=== PATIENT | female | born 1985 | race African-American/Black ===

== ENCOUNTER 2017-09-07 16:26 | Inpatient (IN) | payer OTHER ==
[~2017-09-07] VITALS: Ht 157.5 cm; Wt 55.0 kg
[2017-09-07] MEDS ORDERED: ADV250INH INH (16:54)
[2017-09-07] MEDS ORDERED: ALBU1.25 INH (16:54)
[2017-09-07] MEDS ORDERED: TRAZ50TA11 PO (16:54)
[2017-09-07] MEDS ORDERED: SING10TA32 PO (16:54)
[2017-09-07 17:46] LABS: MEAN CORPUSCULAR HEMOGLOBIN 29.1 pg (27.0-33.0); MEAN CORPUSCULAR HGB CONC 33.7 g/dl (32.0-36.5); MEAN CORPUSCULAR VOLUME 86.2 fl (80.0-96.0); PLATELET COUNT, AUTOMATED 381 10^3/uL (150-450); RED CELL DISTRIBUTION WIDTH 11.3 % (11.5-14.5); WHITE BLOOD COUNT 6.1 10^3/uL (4.0-10.0)
[2017-09-07 18:03] LABS: CONTROL LINE HCG INT CTR LINE PRESENT
[2017-09-07 18:08] LABS: METHADONE URINE NEGATIVE (NEGATIVE)
[2017-09-07 18:17] LABS: ALBUMIN 4.2 GM/DL (3.2-5.2); ALKALINE PHOSPHATASE 67 U/L (45-117); ALT/SGPT 14 U/L (12-78); ANION GAP 7 MEQ/L (8-16); AST/SGOT 9 U/L (7-37); BILIRUBIN,DIRECT < 0.1 MG/DL (0.0-0.2); BILIRUBIN,TOTAL 0.3 MG/DL (0.2-1.0); BLOOD UREA NITROGEN 12 MG/DL (7-18); CALCIUM LEVEL 8.7 MG/DL (8.5-10.1); CARBON DIOXIDE LEVEL 27 MEQ/L (21-32); CHLORIDE LEVEL 107 MEQ/L (98-107); CREATININE FOR GFR 0.83 MG/DL (0.55-1.02); GLOMERULAR FILTRATION RATE > 60.0 (>60); GLUCOSE, FASTING 74 MG/DL (70-105); POTASSIUM SERUM 3.9 MEQ/L (3.5-5.1); SODIUM LEVEL 141 MEQ/L (136-145); TOTAL PROTEIN 7.7 GM/DL (6.4-8.2)
[2017-09-07] MEDS ORDERED: ALBU83IN INH (21:15)
[2017-09-07] MEDS ORDERED: traZODone 50 MG TAB PO PRN (23:30)
[2017-09-07] MEDS ORDERED: MAALOX 30 ML SUSP *UDC PO PRN (23:30)
[2017-09-07] MEDS ORDERED: ALBUTEROL SULFATE 2.5 MG/0.5 ML INH NEB SOLN INH PRN (23:45)
[2017-09-08 07:00] VITALS: BP 103/59
[2017-09-08] MEDS: MONTELUKAST 10 MG TAB PO SCH (10:00)
[2017-09-08] MEDS: ADVAIR HFA 115/21MCG INHALER INH SCH ×2 (10:00→20:35)
[2017-09-08 18:00] VITALS: BP 107/69
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
[2017-09-09 06:43] VITALS: BP 114/60
[2017-09-09] MEDS: MONTELUKAST 10 MG TAB PO SCH (08:53)
[2017-09-09] MEDS: ADVAIR HFA 115/21MCG INHALER INH SCH ×2 (08:53→21:44)
[2017-09-09] MEDS: FLUoxetine 10 MG CAP PO SCH (08:54)
[2017-09-09] MEDS ORDERED: INFLUENZA QUADRIVALENT PF VACCINE 0.5ML SYRINGE (90686) IM ONE (09:00)
[2017-09-09 12:21] VITALS: BP 120/69
--- NOTE | 2017-09-09 17:08 | MHIPN ---
DATE: 09/09/2017 CHIEF COMPLAINT: Feels anxious. SUBJECTIVE: Seen for followup, in the presence of staff. Says continues feeling anxious in essence, and depressed. Says did not get any sleep last night, has a new roommate, who is quite agitated. The patient has been eating, says also has spoken with her mother, and informed her that she was here. Says her mother asked her to pray. MENTAL STATUS EXAMINATION: Neat, cooperative, though a bit guarded. She is coherent. No agitation at present. Affect restricted but reactive. Vague on suicidal thoughts, no firm plans. No homicidal ideas or intents. No evidence of any psychosis. Cognition grossly intact. Judgment and insight are fair, questionable overall. ASSESSMENT: 1. Posttraumatic stress disorder. 2. Major depressive disorder. PLAN: She has been started on Prozac, at 10 mg daily, and this will be titrated upwards, within the next couple of days. Meanwhile, she is encouraged to participate in activities in the unit. I would also suggest obtaining collateral information to help clarify her situation further. She will be seeing the assigned treatment team tomorrow, including the psychiatrist.
[2017-09-09 18:00] VITALS: BP 118/70
[2017-09-10 07:00] VITALS: BP 109/55
--- NOTE | 2017-09-10 08:40 | HPE ---
DATE OF ADMISSION: 09/07/2017 HISTORY OF THE PRESENT ILLNESS: Please refer to psychiatric history and evaluation for further details on this admission. This examination and history is intended for medical issues history, which may need treatment, follow-up or consult on this 32-year-old female. ALLERGIES: No known allergies. PRIMARY CARE PROVIDER: [facility]. SOCIAL HISTORY: She is , but is and getting . ETOH rarely. Smokes none. Recreational drug use none. PAST MEDICAL HISTORY: Asthma. Physical therapy for degenerative disc disease. PAST SURGICAL HISTORY: [place] teeth extraction. LABORATORY STUDIES: WBC 6.1, hematocrit 14.1, hemoglobin 41.8, platelets 381. Electrolytes normal. BUN 12, creatinine 0.83. Toxicology screen is negative. FAMILY HISTORY: Noncontributory. HOME MEDICATIONS: - trazodone 50 mg by mouth at bedtime - albuterol one vial via nebulizer every 4 hours as needed for shortness of breath - Singulair 10 mg by mouth daily - Advair 50/250 one inhalation twice a day REVIEW OF SYSTEMS: 10-systems review was done and was unremarkable. Patient had no complaints. PHYSICAL EXAMINATION: Patient is alert and oriented times three. Height 62 inches, weight 55 kg, BMI 27.2, blood pressure 107/70, pulse 80, respirations 16, temperature 98. HEENT: Pupils equal and react to light. EOM's are intact. Cornea and sclerae are clear. Conjunctivae are normal. No facial asymmetry. Carotids 2+ without bruits. CHEST: Clear to auscultation without wheeze or retraction. HEART: Regular. ABDOMEN: Benign. Bowel sounds are positive. /RECTAL: Not done. EXTREMITIES: Show arthritic changes. No cyanosis, clubbing or edema. Peripheral pulses are equal and palpable bilaterally. SKIN: Warm and dry. IMPRESSION/PLAN: 1. Psychiatric plan per psychiatry. 2. History of asthma. Continue Singulair and Advair, albuterol is available as needed.
[2017-09-10] MEDS: MONTELUKAST 10 MG TAB PO SCH (08:48)
[2017-09-10] MEDS: FLUoxetine 10 MG CAP PO SCH (08:48)
[2017-09-10] MEDS: ADVAIR HFA 115/21MCG INHALER INH SCH ×2 (08:49→21:12)
[2017-09-10 18:00] VITALS: BP 101/55
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
[2017-09-10] MEDS: QUEtiapine FUMARATE 100 MG TAB PO SCH (21:11)
[2017-09-11 07:00] VITALS: BP 109/60
[2017-09-11] MEDS: MONTELUKAST 10 MG TAB PO SCH (08:28)
[2017-09-11] MEDS: SERTRALINE HCL 25 MG TABLET PO SCH (08:28)
[2017-09-11] MEDS: ADVAIR HFA 115/21MCG INHALER INH SCH ×2 (08:28→21:02)
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
[2017-09-11 18:00] VITALS: BP 114/78
[2017-09-11] MEDS: QUEtiapine FUMARATE 100 MG TAB PO SCH (21:03)
[2017-09-12 06:38] VITALS: BP 135/57
[2017-09-12] MEDS: MONTELUKAST 10 MG TAB PO SCH (08:24)
[2017-09-12] MEDS: SERTRALINE HCL 25 MG TABLET PO SCH (08:24)
[2017-09-12] MEDS: ADVAIR HFA 115/21MCG INHALER INH SCH ×2 (08:24→20:54)
[2017-09-12] MEDS: LORazepam 1 MG TAB PO PRN ×2 (11:19→20:54)
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
[2017-09-12 18:00] VITALS: BP 122/70
[2017-09-12] MEDS: QUEtiapine FUMARATE 50 MG TAB PO SCH (20:54)
[2017-09-13 07:29] VITALS: BP 100/56
[2017-09-13] MEDS: ADVAIR HFA 115/21MCG INHALER INH SCH ×2 (08:28→20:32)
[2017-09-13] MEDS: MONTELUKAST 10 MG TAB PO SCH (08:28)
[2017-09-13] MEDS: SERTRALINE HCL 50 MG TAB PO SCH (08:28)
[2017-09-13] MEDS: LORazepam 1 MG TAB PO PRN (09:39)
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
[2017-09-13 18:00] VITALS: BP 113/76
[2017-09-13] MEDS: QUEtiapine FUMARATE 50 MG TAB PO SCH (21:28)
[2017-09-14 06:36] VITALS: BP 118/58
[2017-09-14] MEDS: SERTRALINE HCL 50 MG TAB PO SCH (09:18)
[2017-09-14] MEDS: ADVAIR HFA 115/21MCG INHALER INH SCH ×2 (09:18→20:56)
[2017-09-14] MEDS: MONTELUKAST 10 MG TAB PO SCH (09:18)
[2017-09-14 09:29] VITALS: BP 118/58
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
[2017-09-14 18:00] VITALS: BP 112/56
[2017-09-15] MEDS: QUEtiapine FUMARATE 50 MG TAB PO SCH ×2 (00:04→22:30)
[2017-09-15 06:37] VITALS: BP 103/60
[2017-09-15] MEDS: SERTRALINE HCL 50 MG TAB PO SCH (08:53)
[2017-09-15] MEDS: MONTELUKAST 10 MG TAB PO SCH (08:53)
[2017-09-15] MEDS: ADVAIR HFA 115/21MCG INHALER INH SCH ×2 (08:53→21:47)
[2017-09-15] MEDS: ACETAMINOPHEN TAB 650MG DOSE (2X325MG) PO PRN (10:11)
[2017-09-15 18:00] VITALS: BP 124/69
[2017-09-16 06:46] VITALS: BP 109/74
[2017-09-16] MEDS: SERTRALINE HCL 50 MG TAB PO SCH (08:21)
[2017-09-16] MEDS: ADVAIR HFA 115/21MCG INHALER INH SCH ×2 (08:21→21:24)
[2017-09-16] MEDS: MONTELUKAST 10 MG TAB PO SCH (08:21)
[2017-09-16 18:00] VITALS: BP 101/56
[2017-09-16] MEDS ORDERED: SERT50TA PO (18:52)
[2017-09-16] MEDS ORDERED: QUET5TAB PO (18:52)
[2017-09-16] MEDS: QUEtiapine FUMARATE 50 MG TAB PO SCH (21:00)
[2017-09-17] MEDS: LORazepam 1 MG TAB PO PRN ×2 (02:43→15:04)
[2017-09-17 06:00] VITALS: BP 107/61
[2017-09-17] MEDS: ADVAIR HFA 115/21MCG INHALER INH SCH ×2 (09:16→21:35)
[2017-09-17] MEDS: SERTRALINE HCL 50 MG TAB PO SCH (09:17)
[2017-09-17] MEDS: MONTELUKAST 10 MG TAB PO SCH (09:17)
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
[2017-09-17] MEDS ORDERED: BISACODYL 10 MG SUPP PR ONE (15:00)
[2017-09-17] MEDS: MOM 30ML SUSPENSION UDC PO PRN (16:07)
[2017-09-17 18:00] VITALS: BP 129/90
[2017-09-17] MEDS: QUEtiapine FUMARATE 200 MG TAB PO SCH (21:34)
[2017-09-17] MEDS: MIRTAZAPINE 15 MG TAB PO SCH (21:35)
[2017-09-17] MEDS: traZODone 50 MG TAB PO PRN (22:40)
[2017-09-18 06:57] VITALS: BP 126/62
[2017-09-18] MEDS: ADVAIR HFA 115/21MCG INHALER INH SCH ×2 (09:26→21:53)
[2017-09-18] MEDS: MONTELUKAST 10 MG TAB PO SCH (09:26)
[2017-09-18] MEDS: SERTRALINE HCL 25 MG TABLET PO SCH (09:26)
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
[2017-09-18 18:06] VITALS: BP 111/70
[2017-09-18] MEDS: MIRTAZAPINE 15 MG TAB PO SCH (23:01)
[2017-09-18] MEDS: QUEtiapine FUMARATE 200 MG TAB PO SCH (23:01)
[2017-09-19 06:38] VITALS: BP 131/65
[2017-09-19] MEDS: ADVAIR HFA 115/21MCG INHALER INH SCH ×2 (08:21→20:35)
[2017-09-19] MEDS: MONTELUKAST 10 MG TAB PO SCH (08:21)
[2017-09-19] MEDS: SERTRALINE HCL 25 MG TABLET PO SCH (08:21)
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
[2017-09-19] MEDS: ACETAMINOPHEN TAB 650MG DOSE (2X325MG) PO PRN (13:41)
[2017-09-19 18:00] VITALS: BP 112/73
[2017-09-19] MEDS: LORazepam 1 MG TAB PO PRN (20:35)
[2017-09-19] MEDS: QUEtiapine FUMARATE 200 MG TAB PO SCH (23:02)
[2017-09-19] MEDS: MIRTAZAPINE 15 MG TAB PO SCH (23:02)
[2017-09-20 06:54] VITALS: BP 99/56
[2017-09-20] MEDS: MONTELUKAST 10 MG TAB PO SCH (08:39)
[2017-09-20] MEDS: SERTRALINE HCL 25 MG TABLET PO SCH (08:39)
[2017-09-20] MEDS: ADVAIR HFA 115/21MCG INHALER INH SCH ×2 (08:40→20:51)
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
[2017-09-20 18:00] VITALS: BP 137/56
[2017-09-20] MEDS: QUEtiapine FUMARATE 200 MG TAB PO SCH (20:51)
[2017-09-20] MEDS: MIRTAZAPINE 15 MG TAB PO SCH (20:51)
[2017-09-20] MEDS: traZODone 50 MG TAB PO PRN (21:37)
[2017-09-21 06:49] VITALS: BP 112/61
[2017-09-21] MEDS: MONTELUKAST 10 MG TAB PO SCH (08:35)
[2017-09-21] MEDS: SERTRALINE HCL 25 MG TABLET PO SCH (08:35)
[2017-09-21] MEDS: ADVAIR HFA 115/21MCG INHALER INH SCH ×2 (08:36→20:51)
[2017-09-21] MEDS: LORazepam 1 MG TAB PO PRN (13:11)
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
[2017-09-21] MEDS ORDERED: SERT25TA PO (15:42)
[2017-09-21] MEDS ORDERED: TRAZO50TA PO (15:42)
[2017-09-21] MEDS ORDERED: ADVA115A INH (15:49)
[2017-09-21] MEDS ORDERED: QUET1TAB9 PO (15:49)
[2017-09-21] MEDS ORDERED: MONT10TA2 PO (15:49)
[2017-09-21] MEDS ORDERED: MIRT15TA3 PO (15:49)
[2017-09-21] MEDS ORDERED: ALB2.5NEB INH (15:49)
[2017-09-21 18:00] VITALS: BP 104/55
[2017-09-21] MEDS: MOM 30ML SUSPENSION UDC PO PRN (18:23)
[2017-09-21] MEDS: MIRTAZAPINE 15 MG TAB PO SCH (22:06)
[2017-09-21] MEDS: QUEtiapine FUMARATE 200 MG TAB PO SCH (22:06)
[2017-09-22] MEDS: SERTRALINE HCL 25 MG TABLET PO SCH (06:56)
[2017-09-22] MEDS: MONTELUKAST 10 MG TAB PO SCH (06:56)
[2017-09-22] MEDS: ADVAIR HFA 115/21MCG INHALER INH SCH (06:57)
== END 2017-09-22 07:37 | disposition home or self-care (01) | DRG 882 ==
LOC: M ED 16:26 → EDBD 16:26 → M ED INP 20:35 → M PSY 21:39
PROVIDERS: ADMIT Psychiatry & Neurology Psychiatry; ATTEND Psychiatry & Neurology Psychiatry
DX: F43.10 Post-traumatic stress disorder, unspecified (principal); R45.851 Suicidal ideations; F32.2 Major depressive disorder, single episode, severe without psychotic features; F41.1 Generalized anxiety disorder; J45.909 Unspecified asthma, uncomplicated; Z79.899 Other long term (current) drug therapy